=== PATIENT | female | born 1965 | race Caucasian/White ===

== ENCOUNTER 2022-10-10 13:47 | Emergency (ER) | payer OTHER ==
[~2022-10-10] VITALS: Ht 167.6 cm; Wt 86.2 kg
[2022-10-10 13:58] VITALS: BP 122/49
== END 2022-10-10 16:50 | disposition home or self-care (01) ==
LOC: ER 13:47
DX: M25.561 Pain in right knee (principal); V18.0XXA Pedal cycle driver injured in noncollision transport accident in nontraffic accident, initial encounter
CPT/HCPCS: 29505; 73562-RT; 99283-25

== ENCOUNTER 2023-05-21 17:47 | Emergency (ER) | payer OTHER ==
[~2023-05-21] VITALS: Ht 167.6 cm; Wt 81.7 kg
[2023-05-21 17:53] VITALS: BP 145/65
== END 2023-05-21 18:47 | disposition home or self-care (01) ==
LOC: ER 17:47
DX: S63.285A Dislocation of proximal interphalangeal joint of left ring finger, initial encounter (principal); Y04.0XXA Assault by unarmed brawl or fight, initial encounter
CPT/HCPCS: 73120; 99283-25